=== PATIENT | male | born 1970 | race African-American/Black ===

== ENCOUNTER 2018-07-18 13:26 | Emergency (ER) | payer MEDICARE, BC ==
[2018-07-18 13:42] VITALS: BP 122/52
--- NOTE | 2018-07-18 14:03 | ER Document Report ---
ED Medical Screen (RME) - General Chief Complaint: Nose Bleed Stated Complaint: NOSE BLEED Time Seen by Provider: 07/18/18 13:50 Primary Care Provider: MAYA TRUONG MD [Primary Care Provider] - Follow up as needed Notes: Patient is a 47 year old male that presents to the emergency department for chief complaint of nosebleed. Patient is on Coumadin, has not had his INR checked since this past November.Started around 4 AM this morning, he did pack it at home, it seemed to have slowed down at this time ROS: Other than noted above, the 12 point review of systems was reviewed with the patient and were negative, all pertinent findings are included in the HPI. PHYSICAL EXAMINATION: Vital signs reviewed. GENERAL: Well-appearing, well-nourished and in no acute distress. HEAD: Atraumatic, normocephalic. EYES: Pupils equal round extraocular movements intact, conjunctiva are normal. ENT: Nasal packing noted in the right nares, no blood in the posterior pharynx NECK: Normal range of motion CV: Heart regular rate and rhythm LUNGS: No respiratory distress Musculoskeletal: Normal range of motion NEUROLOGICAL: Normal speech PSYCH: Normal mood, normal affect. MDM: Patient seen and examined for rapid initial assessment. Vital signs reviewed. A comprehensive ED assessment and evaluation of the patient, analysis of test results and completion of the medical decision making process will be conducted by additional ED providers. *Note is created using voice recognition software and may contain spelling, syntax or grammatical errors. TRAVEL OUTSIDE OF THE [place] IN LAST 30 DAYS: No - Related Data Allergies/Adverse Reactions: No Known Allergies Allergy (Unverified 07/18/18 13:31) Past Medical History Renal/ Medical History: Denies: Hx Peritoneal Dialysis Physical Exam - Vital signs Vitals: Temp Pulse Resp BP Pulse Ox 98.5 F 72 18 122/52 L 99 07/18/18 13:40 07/18/18 13:40 07/18/18 13:40 07/18/18 13:40 07/18/18 13:40 Course - Vital Signs Vital signs: Temp Pulse Resp BP Pulse Ox 98.5 F 72 18 122/52 L 99 07/18/18 13:40 07/18/18 13:40 07/18/18 13:40 07/18/18 13:40 07/18/18 13:40 Doctor's Discharge - Discharge Referrals: MAYA TRUONG MD [Primary Care Provider] - Follow up as needed
[2018-07-18] MEDS ORDERED: TRANEXAMIC ACID INJ/PF 1,000 MG/10 ML SDV IV ONE (15:38)
[2018-07-18] MEDS ORDERED: OXYMETAZOLINE HCL 0.05% NASAL SPRAY 15 ML BOTTLE NASL ONE (15:40)
--- NOTE | 2018-07-18 15:42 | ER Document Report ---
ED ENT - General Chief Complaint: Nose Bleed Stated Complaint: NOSE BLEED Time Seen by Provider: 07/18/18 13:50 Primary Care Provider: MAYA TRUONG MD [Primary Care Provider] - Follow up as needed Mode of Arrival: Ambulatory Information source: Patient Notes: Patient presents complaining of nosebleed that started around 4:00 this morning. Patient states that he was having a lot of clots and initially had difficulty getting it controlled but currently does not have any active bleeding. Patient does take Coumadin and states that he has not had his INR checked since November of last year because his primary doctor has not checked it. Patient states he has had some difficulty transitioning after moving here from [place]. Patient also states that he has been eating a lot of okra which he thinks may be affecting his INR. Patient states that he stopped his Coumadin yesterday evening because he had a little oozing that he was worried about a nosebleed last night. Patient states that the triage nurse was not successful in drawing his blood and he does not want his INR checked at this time. TRAVEL OUTSIDE OF THE [place] IN LAST 30 DAYS: No - HPI Onset: This morning Onset/Duration: Better Pain Level: Denies Associated symptoms: Nose bleed Similar symptoms previously: No Recently seen / treated by doctor: No - Related Data Allergies/Adverse Reactions: No Known Allergies Allergy (Unverified 07/18/18 13:31) Past Medical History - General Information source: Patient - Social History Smoking Status: Never Smoker Frequency of alcohol use: None Drug Abuse: None Occupation: None Family History: Reviewed & Not Pertinent Patient has suicidal ideation: No Patient has homicidal ideation: No - Past Medical History Cardiac Medical History: Reports: Hx Atrial Fibrillation, Other - Endocarditis Renal/ Medical History: Reports: Hx End Stage Renal Disease, Hx Hemodialysis. Denies: Hx Peritoneal Dialysis Past Surgical History: Reports: Hx Cardiac Surgery - Mechanical valve replacement, Other - Nasal polyp Review of Systems - Review of Systems Constitutional: No symptoms reported. denies: Fever EENT: Nose discharge Cardiovascular: No symptoms reported. denies: Chest pain, Palpitations Respiratory: No symptoms reported Gastrointestinal: No symptoms reported. denies: Vomiting Genitourinary: No symptoms reported Male Genitourinary: No symptoms reported Musculoskeletal: No symptoms reported Skin: No symptoms reported. denies: Change in color Hematologic/Lymphatic: No symptoms reported. denies: Anemia, Easy bruising Neurological/Psychological: No symptoms reported Physical Exam - Vital signs Vitals: Temp Pulse Resp BP Pulse Ox 98.5 F 72 18 122/52 L 99 07/18/18 13:40 07/18/18 13:40 07/18/18 13:40 07/18/18 13:40 07/18/18 13:40 - General General appearance: Appears well, Alert In distress: None - HEENT Head: Normocephalic, Atraumatic Eyes: Normal Conjunctiva: Normal Nasal: Epistaxis - Small amount of blood noted inside right nostril, no active bleeding. Mouth/Lips: Normal Mucous membranes: Normal Pharynx: Normal. No: Blood in hypopharynx Neck: Normal - Respiratory Respiratory status: No respiratory distress Chest status: Nontender Breath sounds: Normal Chest palpation: Normal - Cardiovascular Rhythm: Regular Heart sounds: S1 appreciated, S2 appreciated - Extremities General upper extremity: Normal inspection, Normal strength General lower extremity: Normal inspection, Normal strength - Neurological Neuro grossly intact: Yes Cognition: Normal Trip Coma Scale Eye Opening: Spontaneous Trip Coma Scale Verbal: Oriented White Coma Scale Motor: Obeys Commands Trip Coma Scale Total: 15 - Psychological Associated symptoms: Normal affect, Normal mood - Skin Skin Temperature: Warm Skin Moisture: Dry Skin Color: Normal Course - Re-evaluation Re-evalutation: 07/18/18 15:40 Patient initially was refusing any repeat attempt at a blood draw because nurse was initially unsuccessful with blood draw in the triage area. Patient states that he will just wait and get his labs drawn at dialysis. Patient advised that he could be supratherapeutic on his Coumadin which could cause excessive thinning of his blood leading to spontaneous bleeding that could be life- threatening. Discussed with the patient concerns that this may be symptom of a need to adjust his medication if not give him a reversal agent for his Coumadin. Patient has not had his INR checked since November of last year. After discussing these concerns and concern about patient safety, patient did agree to one more attempt at a blood draw. 07/18/18 16:04 RN states that patient decided to leave AMA. - Vital Signs Vital signs: Temp Pulse Resp BP Pulse Ox 98.5 F 72 18 122/52 L 99 07/18/18 13:40 07/18/18 13:40 07/18/18 13:40 07/18/18 13:40 07/18/18 13:40 Discharge - Discharge Clinical Impression: Epistaxis Condition: Stable Disposition: AGAINST MEDICAL ADVICE Referrals: MAYA TRUONG MD [Primary Care Provider] - Follow up as needed
== END 2018-07-18 15:45 | disposition left against medical advice (07) ==
LOC: ER 13:26
DX: R04.0 Epistaxis (principal); N18.6 End stage renal disease; I48.91 Unspecified atrial fibrillation; Z99.2 Dependence on renal dialysis; Z79.02 Long term (current) use of antithrombotics/antiplatelets; Z95.2 Presence of prosthetic heart valve
CPT/HCPCS: 99283

== ENCOUNTER → 2018-07-19 | Outpatient (CLI) | payer MEDICARE, BC ==
[2018-07-19 16:04] LABS: INTERNATIONAL RATION (INR) 3.24; PROTHROMBIN TIME 34.5 SEC (11.4-15.4)
== END ==
LOC: LAB 15:42
PROVIDERS: ATTEND Specialist
DX: I48.0 Paroxysmal atrial fibrillation (principal); Z95.2 Presence of prosthetic heart valve; Z79.01 Long term (current) use of anticoagulants
CPT/HCPCS: 36415; 85610

== ENCOUNTER 2018-07-29 12:50 | Emergency (ER) | payer MEDICARE, BC ==
[2018-07-29] MEDS ORDERED: ASPIRIN 81 MG TABLET, CHEWABLE PO ONE (13:32)
--- NOTE | 2018-07-29 14:05 | ER Document Report ---
Entered by CHELLE BERMUDEZ SCRIBE 07/29/18 1403 Acting as scribe for:CARLITA ISRAEL DO ED Medical Screen (RME) - General Chief Complaint: Chest Pain Stated Complaint: CHEST PAIN Time Seen by Provider: 07/29/18 13:23 Primary Care Provider: MAYA TRUONG MD [Primary Care Provider] - Follow up as needed Mode of Arrival: Wheelchair Information source: Patient Notes: Patient is a 47 year old male with HTN, currently on T, TH, Sat dialysis presents to the emergency department complaining of chest pain onset 2 days ago. Patient states he drove to [place] and back and began to have chest pain after eating at [employer] 2 days ago. He states the pain is located over his sternum and describes it as a non radiating aching. He reports only finishing 3h 15 minutes of dialysis today due to it being "annoying" but not contributing to her worsening his pain. I have greeted and performed a rapid initial assessment of the patient. A comprehensive ED assessment and evaluation of the patient, analysis of test results, and completion of the medical decision making process will be conducted by additional ED providers. GENERAL: Alert, interacts well. No acute distress. HEAD: Normocephalic, atraumatic. EYES: Pupils equal, round, and reactive to light. Extraocular movements intact. ENT: Oral mucosa moist, tongue midline. NECK: Full range of motion. Supple. Trachea midline. LUNGS: Crackles in RLL. No respiratory distress. HEART: 2/6 systolic murmur. ABDOMEN: Soft, epigastric tenderness to palpation. Non-distended. Bowel sounds present in all 4 quadrants. No guarding, rigidity, or rebound. EXTREMITIES: Moves all 4 extremities spontaneously. NEUROLOGICAL: Alert and oriented x3. Normal speech. PSYCH: Normal affect, normal mood. SKIN: Warm, diaphoretic, normal turgor. No rashes or lesions noted. TRAVEL OUTSIDE OF THE [place] IN LAST 30 DAYS: No - Related Data Allergies/Adverse Reactions: No Known Allergies Allergy (Verified 07/29/18 12:52) Past Medical History - Social History Frequency of alcohol use: None Drug Abuse: None - Past Medical History Cardiac Medical History: Reports: Hx Atrial Fibrillation, Hx Hypertension Renal/ Medical History: Reports: Hx End Stage Renal Disease, Hx Hemodialysis. Denies: Hx Peritoneal Dialysis Past Surgical History: Reports: Hx Cardiac Surgery - Mechanical valve replacement, Hx Nose Surgery - nasal polyps removed, Hx Orthopedic Surgery - L tib/fib fracture, Other - Nasal polyp Physical Exam - Vital signs Vitals: Temp Pulse Resp BP Pulse Ox 99.4 F 93 16 82/52 L 94 07/29/18 13:08 07/29/18 13:08 07/29/18 13:08 07/29/18 13:08 07/29/18 13:08 Course - Vital Signs Vital signs: Temp Pulse Resp BP Pulse Ox 99.4 F 93 16 82/52 L 94 07/29/18 13:08 07/29/18 13:08 07/29/18 13:08 07/29/18 13:08 07/29/18 13:08 Doctor's Discharge - Discharge Referrals: MAYA TRUONG MD [Primary Care Provider] - Follow up as needed I personally performed the services described in the documentation, reviewed and edited the documentation which was dictated to the scribe in my presence, and it accurately records my words and actions.
[2018-07-29 14:36] LABS: HEMATOCRIT 28.6 % (37.9-51.0); HEMOGLOBIN 9.4 g/dL (13.5-17.0); MEAN CORPUSCULAR HEMOGLOBIN 27.3 pg (27.0-33.4); MEAN CORPUSCULAR HGB CONC 32.8 g/dL (32.0-36.0); MEAN CORPUSCULAR VOLUME 83 fl (80-97); PLATELET COUNT 185 10^3/uL (150-450); RED BLOOD COUNT 3.43 10^6/uL (4.35-5.55); RED CELL DISTRIBUTION WIDTH 18.2 % (11.5-14.0); WHITE BLOOD COUNT 15.7 10^3/uL (4.0-10.5)
--- NOTE | 2018-07-29 14:42 | RADIOLOGY REPORT (SQ) ---
EXAM DESCRIPTION: CHEST SINGLE VIEW COMPLETED DATE/TIME: 07/29/2018 2:27 pm REASON FOR STUDY: chest pain, hypotension COMPARISON: None. EXAM PARAMETERS: NUMBER OF VIEWS: One view. TECHNIQUE: Single frontal radiographic view of the chest acquired. RADIATION DOSE: NA LIMITATIONS: None. FINDINGS: LUNGS AND PLEURA: Slight left base scarring or atelectasis. No acute pulmonary consolida tion. No pneumothorax or pleural effusion. MEDIASTINUM AND HILAR STRUCTURES: No masses. Contour normal. HEART AND VASCULAR STRUCTURES: Heart normal in size. Normal vasculature. BONES: No acute findings. HARDWARE: Prior anterior median sternotomy and valve replacements. OTHER: No other significant finding. IMPRESSION: 1. Slight left base scarring or atelectasis. No acute pulmonary consolidation. TECHNICAL DOCUMENTATION: JOB ID: [id number] [employer]- All Rights Reserved Reading location - IP/workstation name: [email or web address]
[2018-07-29 14:56] LABS: ALANINE AMINOTRANSFERASE 20 U/L (21-72); ALBUMIN 3.6 g/dL (3.5-5.0); ALKALINE PHOSPHATASE 107 U/L (38-126); ANION GAP 15 (5-19); ASPARTATE AMINO TRANSFERASE 26 U/L (17-59); BILIRUBIN,DIRECT 0.7 mg/dL (0.0-0.4); BILIRUBIN,TOTAL 0.8 mg/dL (0.2-1.3); BLOOD UREA NITROGEN 36 mg/dL (7-20); CALCIUM 9.3 mg/dL (8.4-10.2); CARBON DIOXIDE 28 mmol/L (22-30); CHLORIDE 93 mmol/L (98-107); CREATINE KINASE 52 U/L (55-170); GLUCOSE 91 mg/dL (75-110); POTASSIUM 4.1 mmol/L (3.6-5.0); TOTAL PROTEIN 7.1 g/dL (6.3-8.2)
[2018-07-29 15:06] LABS: CREATINE KINASE MB 5.77 ng/mL (<4.55)
[2018-07-29 15:07] LABS: ABSOLUTE LYMPHOCYTES# (MANUAL) 0.5 10^3/uL (0.5-4.7); ABSOLUTE NEUTROPHILS# (MANUAL) 15.1 10^3/uL (1.7-8.2); BASOPHILS % (MANUAL) 0 % (0-2); EOSINOPHILS % (MANUAL) 1 % (0-6); LYMPHOCYTES % (MANUAL) 3 % (13-45); MONOCYTES % (MANUAL) 0 % (3-13); SEGMENTED NEUTROPHILS % (MAN) 96 % (42-78); TOTAL CELLS COUNTED 100
[2018-07-29 15:08] LABS: OVALOCYTES 1+; POIKILOCYTOSIS 1+
[2018-07-29 15:09] LABS: PLATELET COMMENT ADEQUATE; POLYCHROMASIA SLIGHT
[2018-07-29 15:11] LABS: TROPONIN I 0.97 ng/mL
[2018-07-29 15:22] LABS: PROTHROMBIN TIME 68.6 SEC (11.4-15.4)
[2018-07-29 15:23] LABS: INTERNATIONAL RATION (INR) 7.74
--- NOTE | 2018-07-29 17:43 | ER Document Report ---
ED General - General Chief Complaint: Chest Pain Stated Complaint: CHEST PAIN Time Seen by Provider: 07/29/18 13:23 Primary Care Provider: MAYA TRUONG MD [ACTIVE STAFF] - Follow up as needed Mode of Arrival: Wheelchair TRAVEL OUTSIDE OF THE [place] IN LAST 30 DAYS: No - HPI Notes: Patient presents to the emergency department for evaluation of chest pain. He states he has had chest pain since Saturday. It has been a constant ache. He denies any aggravating or alleviating factors. He does have some associated shortness of breath on occasion. He denies any nausea or vomiting. Of note the patient is an end-stage renal patient. He cut his dialysis and our short today to come to the emergency department to be evaluated. I asked him when his last stress test was. He states his been years. He he was supposed to have one several months ago but did not show up for the stress test. He states he did not because he does not like to receive IVs. - Related Data Allergies/Adverse Reactions: No Known Allergies Allergy (Verified 07/29/18 12:52) Past Medical History - General Information source: Patient - Social History Smoking Status: Never Smoker Frequency of alcohol use: None Drug Abuse: None Family History: Hypertension Patient has suicidal ideation: No Patient has homicidal ideation: No - Past Medical History Cardiac Medical History: Reports: Hx Atrial Fibrillation, Hx Hypertension Renal/ Medical History: Reports: Hx End Stage Renal Disease, Hx Hemodialysis. Denies: Hx Peritoneal Dialysis Past Surgical History: Reports: Hx Cardiac Surgery - Mechanical valve r eplacement, Hx Nose Surgery - nasal polyps removed, Hx Orthopedic Surgery - L tib/fib fracture, Other - Nasal polyp Review of Systems - Review of Systems Constitutional: No symptoms reported EENT: No symptoms reported Cardiovascular: See HPI Respiratory: No symptoms reported Gastrointestinal: No symptoms reported Genitourinary: No symptoms reported Musculoskeletal: No symptoms reported Skin: No symptoms reported Neurological/Psychological: No symptoms reported Physical Exam - Vital signs Vitals: Temp Pulse Resp BP Pulse Ox 99.4 F 93 16 82/52 L 94 07/29/18 13:08 07/29/18 13:08 07/29/18 13:08 07/29/18 13:08 07/29/18 13:08 Interpretation: Hypotensive - Notes Notes: Vital signs reviewed, please refer to chart. Patient is normocephalic, atraumatic. Pupils equal round, reactive to light. Neck is supple without meningismus. Heart is regular with mechanical click of artificial valve. Lungs are clear to auscultation bilaterally. Abdomen is soft, nontender, normoactive bowel sounds throughout. Extremities without cyanosis, clubbing. Peripheral pulses are equal. Skin is warm and dry. Patient is awake, alert, neurological exam is nonfocal. Course - Re-evaluation Re-evalutation: 07/29/18 17:47 Patient presents to the emergency department for evaluation of chest pain. He is not describing a typical anginal pain, but he does have a history of endocarditis. He has made it clear that he is not exceptionally compliant with cardiology's requests. He was placed on the monitor and found to be mildly hypotensive. He was given IV fluids and this did correct. EKG shows changes that could be concerning for anterolateral ischemia. I have no old EKGs to compare to. Patient's INR was found to be markedly elevated as well. His laboratory investigation revealed an elevated CK-MB as well as troponin. Certainly is possible this is secondary to his dialysis, but I am unable to verify that in this patient who is noncompliant and a poor historian. He was given aspirin at onset. His blood pressure will not tolerate any sort of nitrates. He is already on a beta-jus. His INR is supratherapeutic so I am not inclined to anticoagulate this patient in any way further. I do not have a clear etiology as to his hypotension either. He states he cut his dialysis short. Certainly I would not think that he had taken excessive fluid off of him. He is only taking metoprolol. He has no signs of significant bleeding. I am concerned about the possibility of an infection being the etiology. Blood cultures ordered. I spoke to HEATHER Cardoso at 1747, who will further evaluate the patient. 07/29/18 18:28 I spoke to the patient about the fact that he has refused to have another IV stick for blood cultures. I explained to him that he should have a second 1 done via straight stick. He is refusing this. He will accept this through IV line which draws. The limitations of this were explained but the patient continues to refuse. 07/29/18 19:02 I was notified by HEATHER Cardoso that there was concerned about this patient's elevated troponin and possible need for catheterization/dialysis. Call made to [facility] for potential transfer, awaiting callback. 07/29/18 19:[address] Le at [facility]. He is unsure of their dialysis capabilities at this time. We will contact me. 07/29/18 20:08 Still awaiting phone call from Dr. Le. At this point care of this patient will be turned over to emergency physician Dr. Arshad. Please refer to his note for the remainder of the patient's ED course and disposition. - Vital Signs Vital signs: Temp Pulse Resp BP Pulse Ox 99.4 F 93 26 H 93/55 L 90 L 07/29/18 13:08 07/29/18 13:08 07/29/18 19:55 07/29/18 19:55 07/29/18 19:30 - Laboratory Result Diagrams: 07/29/18 14:11 07/29/18 14:11 Laboratory results interpreted by me: 07/29/18 07/29/18 07/29/18 14:11 14:11 14:11 WBC 15.7 H RBC 3.43 L Hgb 9.4 L Hct 28.6 L RDW 18.2 H Seg Neuts % (Manual) 96 H Lymphocytes % (Manual) 3 L Monocytes % (Manual) 0 L Abs Neuts (Manual) 15.1 H Abs Monocytes (Manual) 0.0 L PT INR Sodium 136.0 L Chloride 93 L BUN 36 H Creatinine 6.81 H Est GFR ( Amer) 11 L Est GFR (Non-Af Amer) 9 L Direct Bilirubin 0.7 H ALT 20 L Creatine Kinase 52 L CK-MB (CK-2) 5.77 H 07/29/18 14:11 WBC RBC Hgb Hct RDW Seg Neuts % (Manual) Lymphocytes % (Manual) Monocytes % (Manual) Abs Neuts (Manual) Abs Monocytes (Manual) PT 68.6 H* INR 7.74 H* Sodium Chloride BUN Creatinine Est GFR ( Amer) Est GFR (Non-Af Amer) Direct Bilirubin ALT Creatine Kinase CK-MB (CK-2) - Diagnostic Test Radiology reviewed: Reports reviewed - No acute cardiopulmonary disease - EKG Interpretation by Me Additional EKG results interpreted by me: 07/29/18 17:42 Initial EKG reveals a sinus rhythm with a rate of 90 bpm. Left axis deviation. LVH. T wave and ST changes anterolaterally, concerning for ischemia versus strain. No old EKGs for comparison. Repeat EKG reveals a sinus mechanism with a rate of 87 bpm and largely unchanged. Discharge - Discharge Clinical Impression: Chest pain, Supratherapeutic INR, NSTEMI (non-ST elevated myocardial infarction), Hypotension Condition: Stable Referrals: MAYA TRUONG MD [ACTIVE STAFF] - Follow up as needed
--- NOTE | 2018-07-29 21:32 | ER Document Report ---
Doctor's Note Notes: 07/29/18 20:34 Accepted the patient in signout from Dr. Pelaez. Patient is a 47-year-old male with a history of chronic renal failure on dialysis who presented with chest pain. Initial troponin was elevated, repeat increased. Vital signs have been stable, although patient has had systolic blood pressures in the low 100s. Initial plan was the admitting hospitalist service, after speaking with nephrology (Dr. Mukherjee), had declined admission and preferred patient be transferred for possible need of dialysis. After further review, I feel this is unnecessary and may constitute an EMTALA violation as the patient is not in need of emergent dialysis, plus this facility has the ability to perform routine and not emergent dialysis if needed. We will attempt to admit the patient at this facility. 07/29/18 21:31 I have spoken with cardiology, Dr. Owen, who agrees patient should not be started on heparin drip given his supratherapeutic INR. He agrees patient can be admitted at this facility. 07/29/18 23:01 I have spoken with Dr. Olivo with the hospitalist service and he is adamant the patient has to be transferred to another facility that has the capability to perform dialysis in 48 hours when the patient has his next scheduled session. I have also spoken with the retirement administrator on-call, Gabriela Finn, who has agreed to discuss this issue with the administration tomorrow. Additional attempts will be made to transfer the patient to tertiary/outside facilities. 07/30/18 00:14 At spoken with multiple facilities. [facility] in [place] cannot accept dialysis patients. [facility] is on regional diversion for all medical patient's. [facility] in [place] is on a 36-48-hour delay for non-ICU medical patient's. At this point, we have no choice but keep the patient in the emergency department until definitive disposition plan can be ascertained. My concern is this is a delay in the patient's care and will impair an appropriate cardiac workup/rule out. Will initiate serial repeat labs, including, cardiac enzymes, and will continue to observe and monitor the patient overnight. 07/30/18 04:06 Repeat troponin has increased from 0.9 -> 1.0 -> 2.2, a fourth repeat troponin is now pending. Dr. Olivo was made aware of this and states that "you guys need to just have Dr. Owen see the patient in the morning to medically clear him." Patient will be observed into the morning when he will be reassessed by the morning team.
--- NOTE | 2018-07-30 01:30 | EKG REPORT ---
SEVERITY:- ABNORMAL ECG - SINUS RHYTHM LEFT AXIS DEVIATION LVH WITH SECONDARY REPOLARIZATION ABNORMALITY : Confirmed by: Pauly Hadley MD 30-Jul-2018 01:29:33
--- NOTE | 2018-07-30 01:30 | EKG REPORT ---
SEVERITY:- ABNORMAL ECG - SINUS RHYTHM ATRIAL PREMATURE COMPLEX LEFT AXIS DEVIATION LVH WITH SECONDARY REPOLARIZATION ABNORMALITY : Confirmed by: Pauly Hadley MD 30-Jul-2018 01:29:37
[2018-07-30 07:41] VITALS: BP 97/69
--- NOTE | 2018-07-30 09:23 | ER Document Report ---
Doctor's Note Notes: 07/30/18 09:20 Was called to see the patient because he is signing out AMA. Look back in the patient's chart it looks as if he was here since yesterday. The patient is having increasing troponins. The last of which was 2.2. Hospitalist service would not admit the patient here they have contacted cardiology and renal and we did not have the resources to dialyze the patient. Patient does not require emergent dialysis at this time. Overnight the ER tried to make multiple attempts at transferring the patient in no beds are available. The patient has grown very frustrated and wants to sign out AMA and drive to the closest next hospital. I sat down with him and explained that his troponin is very elevated. He could be having a heart attack he stated that he is feeling better. I made clear to him just because he feels better he does not mean he still not having a cardiac event his troponins are elevated even with his renal failure the escalating troponins are very worrisome for non-ST elevated myocardial infarction. We have try to call [facility] where the patient wants to go and they do not have any available beds. Please see prior notes for other places they try to transfer the patient. Patient has become extraordinarily frustrated and signed the AMA form and understands that he faces considerable morbidity mortality and great risk by driving himself to another hospital outside the health care safety net. He verbalized understanding this and signed the AMA form. I made clear to him he should go immediately to the closest hospital if he is not going to stay here. We will give him a copy of his lab work to take with him.
== END 2018-07-30 09:28 | disposition left against medical advice (07) ==
LOC: ER 12:50
DX: I21.4 Non-ST elevation (NSTEMI) myocardial infarction (principal); R07.9 Chest pain, unspecified; I95.9 Hypotension, unspecified; R79.89 Other specified abnormal findings of blood chemistry; I12.0 Hypertensive chronic kidney disease with stage 5 chronic kidney disease or end stage renal disease; N18.6 End stage renal disease; Z99.2 Dependence on renal dialysis; Z95.2 Presence of prosthetic heart valve
CPT/HCPCS: 93005; 99285; 36415; 87040; 82553; 82550; 85025; 85652; 85610; 87077; 80053; 84484; 71045; 93010; A9270; 87186